=== PATIENT | male | born 1950 | race Caucasian/White ===

== ENCOUNTER 2016-06-22 16:08 | Emergency (ER) | payer OTHER, BC ==
[~2016-06-22] VITALS: Ht 170.2 cm; Wt 105.0 kg
[~2016-06-22 16:08] MED LIST: AMLODIPINE-BEN1 EAC3 PO; CLONAZEPAM0.5 MG PO; SERTRALINE HCL100 MG PO; ULTRAM50 MG PO; ZOFRAN4 MG PO; ZOLPIDEM TARTRA10 MG PO
[2016-06-22 16:50] LABS: HEMATOCRIT 34.1 % (38.0-50.0); MCH 28.9 PG (29.0-34.0); MEAN PLAT.VOLUME 9.4 uM^3 (9.0-12.4); RBC DIS.WIDTH-CV 13.4 % (11.8-14.6); RBC DIS.WIDTH-SD 41.2 % (39-53); RED BLOOD COUNT 4.01 M/uL (4.00-5.50)
[2016-06-22 16:52] LABS: WHITE BLOOD COUNT 11.1 K/uL (4.1-10.2)
[2016-06-22 16:53] LABS: PLATELET COUNT 231 K/uL (156-360)
[2016-06-22 16:59] LABS: CHLORIDE 105 mEq/L (99-109); POTASSIUM 4.4 mEq/L (3.7-5.4); SODIUM 139 mEq/L (136-147)
[2016-06-22 17:00] LABS: GLUCOSE 134 mg/dL (70-99)
[2016-06-22 17:02] LABS: ANION GAP 12 MEQ/L (2-14)
[2016-06-22 17:04] LABS: GFR ESTIMATE (CALCULATED) > 59 mL/min/
[2016-06-22 17:05] LABS: UREA NITROGEN (BUN) 34 mg/dL (9-23)
[2016-06-22 17:20] LABS: ADD MIUA? NO; BILIRUBIN NEGATIVE; BLOOD NEGATIVE; COLOR YELLOW ((YELLOW)); GLUCOSE (STRIP) NEGATIVE; KETONES 5; LEUKOCYTES NEGATIVE; NITRITE NEGATIVE; PROTEIN (STRIP) NEGATIVE; SPECIFIC GRAVITY 1.026 (1.000-1.030); UROBILINOGEN 0.2 MG/DL (0.2-1.0)
[2016-06-22] MEDS ORDERED: NORCO 7.5/321 TABLET PO (19:09)
[2016-06-22] MEDS ORDERED: FLOMAX0.4 MG PO (19:09)
[2016-06-22 19:41] VITALS: BP 125/69
== END 2016-06-22 19:42 | disposition home or self-care (01) ==
LOC: EME 16:08
PROVIDERS: Emergency Medicine
PROC: 0T9B70Z Drainage of Bladder with Drainage Device, Via Natural or Artificial Opening (ICD-10-PCS; principal; 2016-06-22)
DX: R10.30 Lower abdominal pain, unspecified (principal); R33.9 Retention of urine, unspecified; Z98.890 Other specified postprocedural states; R53.1 Weakness; R19.7 Diarrhea, unspecified; I10 Essential (primary) hypertension
CPT/HCPCS: 74176; 80048; 81003; 85027; 99281; 99285; J2270; J2405; J7030

== ENCOUNTER 2016-06-29 09:34 | Emergency (ER) | payer OTHER, BC ==
[~2016-06-29] VITALS: Ht 170.2 cm; Wt 109.0 kg
[~2016-06-29 09:34] MED LIST changes: +FLOMAX0.4 MG PO; +NORCO 7.5/321 TABLET PO
[2016-06-29 09:50] VITALS: BP 151/82
[2016-06-29] MEDS ORDERED: LACTULOSE10 GM/151 PO (12:25)
== END 2016-06-29 17:09 | disposition home or self-care (01) ==
LOC: EME 09:34
DX: K59.00 Constipation, unspecified (principal); Z48.89 Encounter for other specified surgical aftercare; Z98.890 Other specified postprocedural states; Z98.84 Bariatric surgery status; Z88.2 Allergy status to sulfonamides; Z88.6 Allergy status to analgesic agent
CPT/HCPCS: 74020; 99281; 99285

== ENCOUNTER 2016-07-04 12:14 | Emergency (ER) | payer OTHER, BC ==
[~2016-07-04] VITALS: Ht 170.2 cm; Wt 97.7 kg
[~2016-07-04 12:14] MED LIST changes: +LACTULOSE10 GM/151 PO
[2016-07-04 13:19] LABS: EOSINOPHIL COUNT 0.1 K/uL (0-0.3); HEMATOCRIT 35.3 % (38.0-50.0); IMMATURE GRANULOCYTE (%) 0.6 % (0.0-0.7); IMMATURE GRANULOCYTE COUNT 0.1 K/uL; INSTRUMENT ABS NEUTROPHIL CT 7.3 K/uL; LYMPHOCYTE COUNT 0.9 K/uL (1.0-2.8); MCH 28.2 PG (29.0-34.0); MCHC 32.6 G/DL (30.0-36.0); MCV 86.5 FL (86-99); MEAN PLAT.VOLUME 8.9 uM^3 (9.0-12.4); MONOCYTE (%) 4.5 % (3-12); MONOCYTE COUNT 0.4 K/uL (0-0.8); NEUTROPHIL (%) 83.2 % (45-76); NEUTROPHIL COUNT 7.3 K/uL (1.8-6.4); RBC DIS.WIDTH-CV 13.8 % (11.8-14.6); RED BLOOD COUNT 4.08 M/uL (4.00-5.50); WHITE BLOOD COUNT 8.7 K/uL (4.1-10.2)
[2016-07-04 13:20] LABS: PLATELET COUNT 341 K/uL (156-360)
[2016-07-04 13:24] LABS: CHLORIDE 107 mEq/L (99-109); POTASSIUM 4.1 mEq/L (3.7-5.4); SODIUM 140 mEq/L (136-147)
[2016-07-04 13:26] LABS: GLUCOSE 76 mg/dL (70-99)
[2016-07-04 13:27] LABS: ANION GAP 17 MEQ/L (2-14)
[2016-07-04 13:28] LABS: TOTAL BILIRUBIN 0.7 mg/dL (0.0-1.0)
[2016-07-04 13:29] LABS: ALKALINE PHOSPHATASE 65 IU/L (3-129)
[2016-07-04 13:30] LABS: GFR ESTIMATE (CALCULATED) > 59 mL/min/
[2016-07-04 13:31] LABS: UREA NITROGEN (BUN) 15 mg/dL (9-23)
[2016-07-04 13:33] LABS: LIPASE 34 U/L (1.0-51.0)
[2016-07-04] MEDS ORDERED: CITRATE OF MAG296 ML PO (16:36)
[2016-07-04 17:23] VITALS: BP 135/74
== END 2016-07-04 17:41 | disposition home or self-care (01) ==
LOC: EME 12:14
PROVIDERS: Emergency Medicine
PROC: 0T9B70Z Drainage of Bladder with Drainage Device, Via Natural or Artificial Opening (ICD-10-PCS; principal; 2016-07-04)
DX: R33.9 Retention of urine, unspecified (principal); K59.00 Constipation, unspecified; I10 Essential (primary) hypertension; Z98.84 Bariatric surgery status
CPT/HCPCS: 74022; 74177; 80053; 83690; 85025; 99281; 99285; J2270; J7030